=== PATIENT | male | born 1980 | race Hispanic/Latino ===

== ENCOUNTER 2018-02-05 13:23 | Emergency (ER) | payer OTHER ==
[~2018-02-05] VITALS: Ht 175.3 cm; Wt 120.2 kg
--- OUTSIDE RECORDS SUMMARY | 2018-02-05 13:25 | XMS REPORT | Continuity of Care Document ---
Author Author [facility] Interface Address Unknown Phone Unavailable Problems Problem Status Onset Date Classification Date Reported Comments Source Chest pain Active Diagnosis 05/02/2015 [facility] Hypercholesteremia Active Diagnosis 05/02/2015 [facility] Other acute and subacute form of ischemic heart disease Active Diagnosis 05/02/2015 [facility] Medications Medication Details Route Status Patient Instructions Ordering Provider Order Date Source Allergies, Adverse Reactions, Alerts Substance Category Reaction Severity Reaction type Status Date Reported Comments Source N.K.D.A. Adverse Reaction Info Not Available Adverse Reaction Active 04/13/2015 [facility] Immunizations Immunization Date Given Site Status Last Updated Comments Source Results Order Name Results Value Reference Range Date Interpretation Comments Source Vital Signs Vital Sign Value Date Comments Source Weight 263 04/13/2015 [facility] Heart Rate 60 04/13/2015 [facility] Diastolic (mm Hg) 60 04/13/2015 [facility] Systolic (mm Hg) 120 04/13/2015 [facility] Encounters Location Location Details Encounter Type Encounter Number Reason For Visit Attending Provider ADM Date DC Date Status Source [facility] COMP PKG [id number] 03/02/2015 03/02/2015 [facility] COMP PKG [id number] 03/02/2015 03/02/2015 [facility] MCKAYLA [id number] 03/02/2015 03/02/2015 [facility] EKG [id number] 03/02/2015 03/02/2015 [facility] CMP, LIPID [id number] 03/02/2015 03/02/2015 [facility] NST [id number] 04/06/2015 04/06/2015 [facility] ECHO [id number] 04/06/2015 04/06/2015 [facility] f/u testing [id number] 04/13/2015 04/13/2015 [facility] Procedures Procedure Code Date Perfomer Comments Source
--- OUTSIDE RECORDS SUMMARY | 2018-02-05 13:25 | XMS REPORT ---
Author Author Hu Rowell Organization [employer] Address Unknown Phone Unavailable Care Team Providers Care Lead Ruby On Rails Developer Name Role Phone Hu Rowell CP Unavailable Allergies, Adverse Reactions, Alerts Substance Reaction Event Type N.K.D.A. Info Not Available Non Drug Allergy Encounters Encounter Location Date EKG [facility] Mar 02, 2015 CMP, LIPID [facility] Mar 02, 2015 NST [facility] Apr 06, 2015 ECHO [facility] Apr 06, 2015 COMP PKG [facility] Mar 02, 2015 COMP PKG [facility] Mar 02, 2015 MCKAYLA [facility] Mar 02, 2015 f/u testing [facility] Apr 13, 2015 Problems Problem Type Condition ICD-9 Code Onset Dates Condition Status Assessment Chest pain R07.9 Active Assessment Hypercholesteremia E78.0 Active Problem Hypercholesteremia E78.0 Active Assessment Other acute and subacute form of ischemic heart disease I24.8 Active Social History Social History Element Qualifiers Date Reported Caffeine: . Do you drink caffeine? Yes 2 coffee Apr 13, 2015 Smoking: . Are you a: Never smoker Apr 13, 2015 Alcohol: . Do you drink alcohol? Yes Apr 13, 2015 Vital Signs Date/Time: Apr 13, 2015 Weight 263 lbs Cardiac Monitoring Heart Rate 60 /min Blood Pressure Diastolic 60 mm Hg Blood Pressure Systolic 120 mm Hg Summary Purpose [employer] Submission
[2018-02-05] MEDS ORDERED: NASONEX17 GM (16:56)
[2018-02-05] MEDS ORDERED: XYZAL5 MG PO (16:56)
[2018-02-05] MEDS ORDERED: ZOFRAN ODT4 MG PO (16:56)
[2018-02-05] MEDS ORDERED: PSEUDOEPHEDRINE30 MG PO (16:56)
== END 2018-02-05 15:40 | disposition left against medical advice (07) ==
LOC: ER 13:23
DX: R42 Dizziness and giddiness (principal)
CPT/HCPCS: 99281

== ENCOUNTER 2018-02-05 15:52 | Emergency (ER) | payer OTHER ==
[~2018-02-05] VITALS: Ht 175.3 cm; Wt 120.2 kg
[2018-02-05 16:18] VITALS: BP 133/78
[2018-02-05] MEDS ORDERED: ZOFRAN ODT4 MG PO (16:56)
[2018-02-05] MEDS ORDERED: NASONEX17 GM (16:56)
[2018-02-05] MEDS ORDERED: XYZAL5 MG PO (16:56)
[2018-02-05] MEDS ORDERED: PSEUDOEPHEDRINE30 MG PO (16:56)
== END 2018-02-05 17:18 | disposition home or self-care (01) ==
LOC: FSED 15:52
DX: J11.1 Influenza due to unidentified influenza virus with other respiratory manifestations (principal); J01.00 Acute maxillary sinusitis, unspecified
CPT/HCPCS: 83518; 86308; 87400; 99283